=== PATIENT | female | born 1980 | race Two or more races ===

== ENCOUNTER 2021-05-14 18:27 | Emergency (ER) | payer SELFPAY ==
[2021-05-14 18:49] VITALS: BP 140/80
[2021-05-14] MEDS ORDERED: CHERRY SYRUP 10 ML UDC PO ONE ×2 (19:18→19:57)
[2021-05-14] MEDS ORDERED: DEXAMETHASONE 10 MG/ML VIAL PO STA (19:18)
[2021-05-14] MEDS ORDERED: DEXAMETHASONE 10 MG/ML VIAL ONE (19:57)
[2021-05-14 20:26] LABS: RAPID STREP SCREEN Negative (Negative)
--- NOTE | 2021-05-14 21:37 | ED Physician Documentation ---
History of Present Illness - Stated complaint Stated Complaint: SORE THROAT - Chief complaint Chief Complaint: Heent - Additonal information Additional information: 40-year-old female presents emergency department for evaluation of sore throat congestion and headache that began about 5 days ago. She recently traveled here from [place] to help her daughter care for her grandson. Patient has received only one of her COVID-19 vaccines and is due now for the second dose. She does report a remote history of COVID-19 infection early in the pandemic. She has no fevers, loss of taste or smell. Denies any cough. She states that she took 800 mg of ibuprofen today to help with the sore throat and then developed some acid reflux. Review of Systems Constitutional: denies: Chills Eyes: reports: Reviewed and negative Nose: reports: Rhinorrhea / runny nose, Congestion Throat: reports: Sore throat Cardiac: reports: Reviewed and negative Respiratory: reports: Reviewed and negative GI: reports: Reviewed and negative : reports: Reviewed and negative PD PAST MEDICAL HISTORY - Past Medical History Past Medical History: Yes GI: GERD - Past Surgical History Past Surgical History: No - Present Medications Home Medications: Ambulatory Orders Medication Instructions Recorded Confirmed Lidocaine Viscous 2% [Xylocaine 5 ml MM TID PRN #100 ml 05/14/21 Viscous 2%] - Allergies Allergies/Adverse Reactions: Allergies Allergy/AdvReac Type Severity Reaction Status Date / Time No Known Drug Allergies Allergy Verified 05/14/21 18:49 - Social History Does the pt smoke?: No Smoking Status: Never smoker Does the pt drink ETOH?: No Does the pt have substance abuse?: No - Immunizations Immunizations are current?: Yes - POLST Patient has POLST: No PD ED PE EXPANDED - General General: Alert, No acute distress, Well developed/nourished - HEENT HEENT: Atraumatic, PERRL, Pharyngeal erythema (Posterior oropharynx erythema without exudate. Uvula is midline. No soft palate asymmetry or swelling. Normal phonation. No trismus. Full range of motion of neck in all planes.), Swollen tonsils. No: Right frontal sinus TTP, Left frontal sinus TTP, Tonsillar exudate - Neck Neck: Supple w/out meningeal sx. No: Adenopathy - Cardiac Cardiac: Regular Rate, Radial strong equal, Pedal strong equal, Cap refill < 2 sec. No: Murmur Present - Respiratory Respiratory: Clear to ausultation eloisa. No: Distress, Labored - Abdomen Abdomen: Normal Bowel sounds - Derm Derm: Normal color, Warm and dry - Neuro Neuro: Alert and Oriented X 3, CNII-XII intact Results - Vitals Vitals: Vital Signs - 24 hr 05/14/21 18:42 Temperature 36.6 C Heart Rate 83 Respiratory 15 Rate Blood Pressure 140/80 H O2 Saturation 99 Oxygen O2 Source Room air - Labs Labs: Laboratory Tests 05/14/21 18:35 Group A Strep Rapid Negative PD MEDICAL DECISION MAKING - ED course Complexity details: reviewed results, d/w patient ED course: This is a well-appearing 40-year-old female that presents the emergency department for evaluation of sore throat for 5 to 6 days with associated congestion. Also reported new onset heartburn today after taking ibuprofen on an empty stomach. Cardiopulmonary auscultation is unremarkable. She does have some posterior oropharynx erythema without exudate. Rapid strep is negative. She is only vaccinated for Covid with 1 injection she is due for her second. A Covid screen is pending but I am less suspicious of Covid infection right now versus another typical viral variant. Patient was given a one-time dose of Decadron. Will defer antibiotics unless culture positive. I will also prescribe a limited amount of viscous lidocaine to help with the sore throat and swallow at home. Emergent return precautions discussed. Departure - Departure Disposition: 01 Home, Self Care Clinical Impression: Sore throat (viral) Condition: Stable Record reviewed to determine appropriate education?: Yes Instructions: ED Pharyngitis Viral Prescriptions: Lidocaine Viscous 2% [Xylocaine Viscous 2%] 5 ml MM TID PRN #100 ml PRN Reason: Pain Comments: Nohemi sanchez were seen today for sore throat and upper respiratory symptoms that have been present for 5 days. Your rapid strep testing is negative. We are sending the culture to the lab. We will not prescribe antibiotics unless the culture is positive. We do have a COVID-19 screening test pending on you. You will only be notified if the test is positive. However I suspect that the cause of your sore throat is a [id number] viral upper respiratory infection. We gave you a one-time dose of Decadron today which should help with pain over the next 3 to 4 days. I am also prescribing some lidocaine that you can use at home by gargling and spitting out 3 times a day. If you are going to continue to take the ibuprofen please take it on a full stomach and limit yourself to 600 mg. Your lidocaine prescription was sent to the [facility] in [place]
== END 2021-05-14 20:42 | disposition home or self-care (01) ==
LOC: ED 18:27
DX: J02.8 Acute pharyngitis due to other specified organisms (principal); Z20.822 Contact with and (suspected) exposure to COVID-19
CPT/HCPCS: 87070; 87430; 87635; 99283; 99284; A9270